=== PATIENT | male | born 1935 | race Caucasian/White ===

== ENCOUNTER 2017-07-22 06:13 | Inpatient (IN) ==
[~2017-07-22 06:13] MED LIST: ACETAMINOPHEN 500 MG TABLET PO ONE; DEXAMETHASONE 4 MG/ML INJECTION IVP ONE; FAMOTIDINE PB 20 MG/50 ML BAG IV ONE; MELOXICAM 15 MG TABLET PO ONE; METOCLOPRAMIDE 10mg/2ml INJECTION IVP ONE; NOZIN NASAL SWAB NAS ONE; ONDANSETRON 4 MG/2 ML INJECTION IVP ONE; TRANEXAMIC ACID 1,000 MG in NS 100 ML IV ONE
[2017-07-22 06:35] VITALS: BMI 25.9
[2017-07-22] MEDS ORDERED: LIDOCAINE 1% (10mg/ml) 2mL INJ PF SDV ID ONE (06:46)
[2017-07-22] MEDS ORDERED: TRANEXAMIC ACID 1,000 MG in NS 100 ML IV ONE (07:00)
[2017-07-22] MEDS: LR 1,000 ML IV SCH ×2 (07:14→08:50)
[2017-07-22] MEDS ORDERED: VANCOMYCIN 1,000 MG INJECTION ONE (07:17)
[2017-07-22] MEDS ORDERED: EPINEPHrine 0.25 MG, BUPIVACAINE 0.25% PF 30 ML, MORPHINE SULFATE 15 MG, KETOROLAC INJ ... OPSITE ONE (08:00)
[2017-07-22] MEDS ORDERED: MIDAZOLAM 2mg/2ml INJECTION ONE (08:10)
[2017-07-22] MEDS ORDERED: PROPOFOL 1,000 MG/100 ML VIAL IV ONE (08:14)
[2017-07-22] MEDS ORDERED: CEFAZOLIN 1 G INJECTION IVP ONE (08:30)
[2017-07-22] MEDS ORDERED: EPHEDRINE 50mg/ml INJECTION ONE (09:08)
[2017-07-22] MEDS ORDERED: VANCOMYCIN 1,000 MG INJECTION IAR ONE (09:14)
--- NOTE | 2017-07-22 09:43 | Anesthesia Preoperative Report ---
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 Proposed Procedure: left TKA robot assist NPO Since Date: 07/21/17 NPO Since Time: 23:00 Allergies/Adverse Reactions: Allergies Allergy/AdvReac Type Severity Reaction Status Date / Time Iodinated Contrast- Oral and Allergy Unknown itching Verified 07/22/17 06:58 IV Dye and hives Sulfa (Sulfonamide Allergy Unknown SWOLLEN Verified 07/22/17 06:58 Antibiotics) HANDS Shellfish Allergy Unknown tongue Uncoded 07/22/17 06:58 swells - Vital Signs Vital Signs: Temperature 97.5 F 07/22/17 06:35 Pulse Rate 55 L 07/22/17 07:05 Respiratory Rate 17 07/22/17 06:35 Blood Pressure 156/72 H 07/22/17 06:35 Pulse Oximetry 97 07/22/17 06:35 Height and Weight: Height 6 ft Weight 86.7 kg Body Mass Index 25.9 - Medications Inpatient Medications: Current Medications Lactated Ringer's (Lactated Ringers) 1,000 mls @ 50 mls/hr IV .Q20H CACHORRO Last Admin: 07/22/17 08:50 Dose: 50 mls/hr Epinephrine HCl 0.25 mg/Bupivacaine HCl 30 ml/Morphine Sulfate 15 mg/Ketorolac Tromethamine 60 mg/Sodium Chloride 65.25 mls @ 1 mls/hr OPSITE INTRAOP ONE PRN Reason: Protocol Stop: 07/25/17 01:14 Sodium Chloride (Iv Flush) 10 - 80 ml IV PRN PRN PRN Reason: Flushing Vancomycin HCl (Vancocin) 1,000 mg IAR O ONE Stop: 07/22/17 09:15 Home Medications: Home Medications Medication Instructions Recorded Confirmed Type Amlodipine Besylate 10 mg PO DAILY #0 05/14/14 07/22/17 History Zinc Gluconate [Zinc] 50 mg PO DAILY #0 05/14/14 07/22/17 History Bisacodyl [Dulcolax] 10 mg PO DAILY #0 04/24/15 07/22/17 History Cholecalciferol [Vit. D-3] 1,000 unit PO DAILY #0 04/24/15 07/22/17 History Pravastatin Sodium 80 mg PO DAILY #0 04/24/15 07/22/17 History Vitamin E Mixed [Vitamin E] 400 unit PO DAILY #0 04/24/15 07/21/17 History L.acidoph,Paracasei, B.lactis 1 cap PO DAILY #0 12/13/15 07/22/17 History [Probiotic] Wheat Dextrin [Benefiber] 2 tsp PO DAILY #0 12/13/15 07/22/17 History Ibuprofen 800 mg PO Q8H PRN #0 03/06/16 07/02/17 History Aspirin *EC* [Ecotrin] 1 tab PO DAILY 07/02/17 07/21/17 History TESTOSTERONE 100MG/ML (10 mL) 100 mg IM 1 WEEK 07/02/17 07/22/17 History [Depo-Testosterone] - Medical History Respiratory: Reports: Sleep Apnea (CPAP) DENIES: Asthma, Chronic Obstructive Pulmonary Disease (COPD) (smoking hx, but denies COPD) Cardiovascular: Reports: Hypertension Gastrointestional: DENIES: Gastroesophageal Reflux Disease Renal/Endocrine: DENIES: Diabetes Mellitus Type 2 Other History: DENIES: Anesthesia Reactions - Surgical History HEENT Surgeries: Reports: Eye Surgery (cat ext with IOL implant-bilateral) Respiratory Surgery/Treatments: Reports: CPAP Use GI Surgery/Treatments: Reports: Colonoscopy, Other (umbilical hernia repair; rectal abscess) Musculoskeletal Surgery/Tx: Reports: Joint Surgery (Bilateral TSA, Lt shoulder x2) Anesthesia Reactions: None Hx Family Anesthesia Reaction: No History of Motion Sickness: No - Social History Smoking Status: Former smoker Hx Chewing Tobacco Use: No Second Hand Exposure: No Substance Use Type: does not use - Pertinent Findings EKG: Sinus Bradycardia - Physical Exam Respiratory Exam: Present: lungs clear, bilateral breath sounds equal Cardiovascular Exam: Present: regular rate and rhythm - Airway Assessment Mallampati Score: II TMD: 3 Fingerbreadths Neck Extension: good Overall Assessment: no airway concerns - ASA ASA Score: 2 - Plan Anesthesia: General TIVA, Neuroaxial Regional/Trunk Block: Spinal - Discussion Discussion: Discussed risks/options/alternatives of anesthesia and questions answered. Patient consents. Nursing pain assessment noted. Present for Discussion: family member Attestation Statement: Prior to the delivery of any anesthetic medication, I examined the patient, developed the plan, obtained the patient's consent and discussed the risk and benefits of the procedure with the patient/guardian. - Additional Information Seen by Anesthesia: Yes
--- NOTE | 2017-07-22 10:08 | Operative Note ---
- Procedure Preoperative Diagnosis: Left knee primary degenerative joint disease Postoperative Diagnosis: Same as preoperative diagnosis. Surgeon: Teresa Fung MD Supervisor Fishing: Benji Campos Complications: None. Anesthesia: Spinal. Estimated Blood Loss: See Anesthesia Record. Fluids: Please see Anesthesia Record. Description of Procedure: Mr. Cobb and his left knee were identified and marked in the preoperative holding area. He was brought back to the operating suite after a saphenous nerve block was placed in the preoperative holding area. Spinal anesthetic was administered and he was placed supine on the operating table. The left lower extremity was prepped and draped in my normal sterile fashion. Timeout was performed. The [email or web address] robot was used during the surgery. He has fixed varus deformity. A standard anterior midline incision followed by medial parapatellar arthrotomy was performed. Anterior fat pad and meniscus were removed. He complete loss of cartilage in the medial compartment. The patella was resurfaced to a size 35. The tibial array was placed in the most inferior aspect of the incision medial to the tubercle using 3.2 pins. A femoral array again using bicortical pins was placed in the distal femoral metaphysis medially. Checkpoints were then placed both in the femur and the tibia. The bone was then registered with the [email or web address] robot. Osteophytes were removed and gaps were captured both 90 and 0 with correction. And the knee was balanced using the [email or web address] software placing the tibia and slight varus and externally rotating the femoral component. The [email or web address] robotic arm was then used to assist with the bone cuts. Posterior osteophytes and remaining meniscus were removed. Trial components were placed. We used a 5 femur and a 6 tibia with a 9 mm spacer. He tracked well and was well balanced throughout range of motion. The leg was exsanguinated and the tourniquet inflated to 250 mmHg. The bone was prepared for cementing and components were cemented into place and allowed to cure in extension. The tourniquet was let down and hemostasis obtained with electrocautery. The knee was ranged one more time to ensure good stability, balance and patellar tracking. 1 g of vancomycin powder was then placed into the knee joint. The capsulotomy was then closed with #1 Vicryl. I then left my materials assistant to close the subcutaneous tissue with 2-0 Vicryl. Running 4-0 Monocryl will be used in the subcuticular layer. Dermabond will be used on the skin followed by sterile dressing. After drapes are removed patient will be taken to recovery room under the care of anesthesia.
--- NOTE | 2017-07-22 10:25 | History & Physical Update ---
- History and Physical Update Date: 07/22/17 Update: I evaluated this patient and found no changes in the history and clinical exam findings. The treatment plan and recommendations are also unchanged from the previous documentation.
--- NOTE | 2017-07-22 10:59 | XRay Report ---
Indication: postoperative image PROCEDURE: XR knee LT 2V: Encounter: Initial Comparison: None Findings: Postoperative changes of left total knee replacement are seen. There is expected postoperative subcutaneous gas. No evidence of hardware failure or acute fracture. No retained radiopaque surgical instruments or sponges. Overlying material causing artifact. Impression: New left total knee prosthesis without evidence of immediate complication. .
[2017-07-22] MEDS ORDERED: ROPIVACAINE 0.5% (5mg/ml) 30ml INJ ONE (11:17)
--- NOTE | 2017-07-22 11:29 | Anesthesia Procedure Note ---
Peripheral Nerve Blockade - Procedure Physician: Neftaly Fung MD Date: 07/22/17 Surgical Procedure: left TKA, robot Discussion: Discussed risks/options/alternatives of anesthesia and questions answered. Patient consents. Nursing pain assessment noted. Block Start: 11:16 Block Stop: 11:22 Blocked Employed: Adductor Canal Indication: Post-Operative Pain Approach: Left Side Confirmed Position: Semi-Landin Patient: Consent, Risks/Benefits Discussed, Informed, Post Block Act. Discussed IV Sedation: No (spinal still in effect, block at L2) Initial Vital Signs: Temperature 97.5 F 07/22/17 06:35 Temperature Source Oral 07/22/17 06:35 Pulse Rate 59 L 07/22/17 06:35 Respiratory Rate 17 07/22/17 06:35 Blood Pressure 156/72 H 07/22/17 06:35 Blood Pressure Mean 100 07/22/17 06:35 Blood Pressure Position Sitting 07/22/17 06:35 Pulse Oximetry 97 07/22/17 06:35 Oxygen Delivery Method 07/22/17 06:35 Post Vital Signs: Temperature 97.0 F 07/22/17 11:05 Pulse Rate 51 L 07/22/17 11:20 Respiratory Rate 15 07/22/17 11:20 Blood Pressure 143/64 H 07/22/17 11:20 Pulse Oximetry 92 07/22/17 11:20 Initial Pain Pain Score: 0 Post Block Pain Score: 0 Prep: Chlorhexadine/ETOH Ultrasound Used?: Yes - Injectate Ropivacaine (%): 0.5 Ropivacaine (mL): 30 Was Epi 1:200,000 Used?: No Injection: Injection made incrementally with constant monitoring and aspiration every 5 ml
--- NOTE | 2017-07-22 11:29 | Anesthesia Postoperative Note ---
- Date and Time Date: 07/22/17 Time: 11:29 - Status Patient Participated in Evaluation: Patient Participated in Person Vital Signs: Temperature 97.0 F 07/22/17 11:05 Pulse Rate 52 L 07/22/17 11:25 Respiratory Rate 16 07/22/17 11:25 Blood Pressure 138/65 07/22/17 11:25 Pulse Oximetry 93 07/22/17 11:25 Respiratory Function: Airway Patent Cardiovascular Function: Regular Pulse EKG: Sinus Rhythm Mental Status: Alert and Oriented Pain Intensity: 0 Hydration: IV Infusing Complications During Recover: None Apparent Post Anesthesia Care Notes: block at L2- denies pain, nausea - Follow-Up Instructions Instructions: Per Surgeon
[2017-07-22] MEDS ORDERED: ONDANSETRON 4 MG/2 ML INJECTION IVP PRN (11:38)
[2017-07-22] MEDS ORDERED: DiphenhydrAMINE 25 MG CAPSULE PO PRN (11:38)
[2017-07-22] MEDS ORDERED: NOZIN NASAL SWAB NAS ONE (11:38)
[2017-07-22] MEDS ORDERED: DiphenhydrAMINE 50 MG/ML INJECTION IVP PRN (11:38)
[2017-07-22] MEDS ORDERED: LORazepam 1 MG TABLET PO PRN (11:38)
[2017-07-22] MEDS ORDERED: NAPROXEN 220 MG TABLET PO PRN (11:38)
[2017-07-22] MEDS: NS 1,000 ML IV SCH (11:40)
[2017-07-22] MEDS: Oxycodone *IR* 5 MG TABLET PO PRN ×3 (12:49→20:59)
[2017-07-22] MEDS: ACETAMINOPHEN 325 MG TABLET PO SCH ×3 (12:50→20:58)
[2017-07-22] MEDS: NOZIN NASAL SWAB NAS SCH ×2 (16:15→21:00)
[2017-07-22] MEDS: CEFAZOLIN 2 G in NS 100 ML IV SCH (16:16)
[2017-07-22] MEDS ORDERED: SALINE FLUSH 10ml SYRINGE IV PRN (17:02)
[2017-07-22] MEDS: DOCUSATE SODIUM 100 MG CAPSULE PO SCH (20:57)
[2017-07-22] MEDS: ASPIRIN *EC* 81 MG TABLET PO SCH (20:59)
[2017-07-22] MEDS ORDERED: PRAVASTATIN 40 MG TABLET PO SCH (21:00)
[2017-07-22] MEDS ORDERED: SENNOSIDES 8.6 MG TABLET PO SCH (21:00)
[2017-07-23] MEDS: CEFAZOLIN 2 G in NS 100 ML IV SCH (00:03)
[2017-07-23] MEDS: NS 1,000 ML IV SCH (01:23)
[2017-07-23] MEDS: NOZIN NASAL SWAB NAS SCH ×2 (05:57→13:29)
--- NOTE | 2017-07-23 07:52 | Orthopedic Progress Note ---
Date: Subjective/Severity of Illness: Damian is doing very well. Pain is controlled. No CP or SOA. He has a slight cough which he states is not unusual for him. He has been up with good tolerance. Orthopedic Objective PO Vital signs: Temperature 97.7 F 07/23/17 03:56 Pulse Rate 61 07/23/17 03:56 Respiratory Rate 16 07/23/17 03:56 Blood Pressure 145/67 H 07/23/17 03:56 Pulse Oximetry 94 07/23/17 03:56 Height and Weight: Height 6 ft Weight 191 lb 2.252 oz Body Mass Index 25.9 - Constitutional General Appearance: Present: alert, no acute distress - Respiratory Exam Present: non-labored - Extremities Exam Extremities: Present: pulses intact, normal capillary refill. Absent: calf tenderness - Surgical Site Incision: Mepilex dressing intact, no drainage - Integumentary Exam Present: pink, warm, dry - Neurological Exam Present: no deficits - Psychiatric Exam Present: alert, normal affect - Labs Result Diagrams: 07/23/17 04:00 07/23/17 04:00 Abnormal lab results 07/23/17 07/23/17 Range/Units 04:00 04:00 WBC 12.7 H (4.5-11.0) T/MM3 RBC 4.29 L (4.50-5.90) M/MM3 Hgb 13.1 L (13.5-17.5) GM/DL Chloride 109 H (98-107) MEQ/L BUN 28.0 H (9-20) MG/DL BUN/Creatinine Ratio 28 H (6-26) RATIO Glucose 117 H (75-110) MG/DL H & H 07/23/17 Range/Units 04:00 Hgb 13.1 L (13.5-17.5) GM/DL Hct 41.0 (41-53) % Orthopedic Assessment and Plan (1) Primary osteoarthritis of left knee Status: Acute Assessment and Plan: Current anti-coagulation protocol for VTE prophylaxis. SCD's. BPs have been a little high but similar to his admission pressure. Will resume Norvasc this AM. PT/OT services to improve independent function. Discharge Planning per Case Management. - Anticoagulation Therapy Anticoagulation: ASA 325 mg PO BID x6 weeks, other (ASA 81mg BID x 6 weeks.) Hospital Course Summary Disclaimer: The visit summary below is not to be considered part of the above Progress Note.
[2017-07-23] MEDS: ASPIRIN *EC* 81 MG TABLET PO SCH (08:27)
[2017-07-23] MEDS: ACETAMINOPHEN 325 MG TABLET PO SCH ×2 (08:27→13:28)
[2017-07-23] MEDS: DOCUSATE SODIUM 100 MG CAPSULE PO SCH (08:28)
[2017-07-23] MEDS ORDERED: CEFAZOLIN 1 G INJECTION IVP ONE (08:30)
[2017-07-23] MEDS ORDERED: AMLODIPINE 10 MG TABLET PO SCH (09:00)
[2017-07-23] MEDS ORDERED: Bisacodyl EC TAB 5 MG TABLET PO SCH (09:00)
[2017-07-23] MEDS ORDERED: POLYETHYL GLYCOL 3350 17gm PACKET PO SCH (09:00)
[2017-07-23] MEDS: Oxycodone *IR* 5 MG TABLET PO PRN (10:09)
[2017-07-23] MEDS ORDERED: SENNOSIDES 8.6 MG TABLET PO PRN (10:27)
[2017-07-23 12:20] VITALS: BP 150/78; PULSE 72; RESP 18; TEMP 97.5; O2SAT 95
--- NOTE | 2017-07-23 13:13 | Discharge Summary ---
Orthopedic Discharge Info Date of admission: 07/22/17 06:13 Primary care physician: Guido Lewis DO Attending Physician: Neftaly Fung MD Consults: 07/22/17 06:46 Consult to Anesthesiology [CONS] Routine Consulting Provider: PANKAJ Morel Reason For Exam: Preoperative Assessment 07/22/17 11:38 Case Management Consult [CONS] Routine Reason For Exam: Discharge Planning DME-Walker [CONS] Routine Height: 6 ft Weight: 191 lb 2.252 oz Comment: change dressing in 2 weeks Total Joint Outpatient Therapy [CONS] Routine Comment: change dressing in 2 weeks - Discharge Diagnosis (1) Primary osteoarthritis of left knee Status: Acute - Procedures Procedures: Left knee TKA - Laboratory Result Diagrams: 07/23/17 04:00 07/23/17 04:00 Laboratory: Abnormal lab results 07/23/17 07/23/17 Range/Units 04:00 04:00 WBC 12.7 H (4.5-11.0) T/MM3 RBC 4.29 L (4.50-5.90) M/MM3 Hgb 13.1 L (13.5-17.5) GM/DL Chloride 109 H (98-107) MEQ/L BUN 28.0 H (9-20) MG/DL BUN/Creatinine Ratio 28 H (6-26) RATIO Glucose 117 H (75-110) MG/DL H & H 07/23/17 Range/Units 04:00 Hgb 13.1 L (13.5-17.5) GM/DL Hct 41.0 (41-53) % Orthopedic Discharge HPI - HPI Comments This patient was admitted for elective surgical tx of end stage degenerative joint disease that failed to respond to conservative treatment. Further details of this is found in the admission H&P. Orthopedic Hospital Course Hospital course: 07/23/17 13:10 After appropriate preoperative clearance and signing of operative consent, the patient was given IV antibiotics, according to orthopedic protocol. The patient was taken to the operating room and underwent elective joint arthroplasty. Following surgery, antibiotics were discontinued less than 24 hours according to joint protocol. Appropriate anticoagulants were initiated and SCDs added for DVT prevention. The dressing was clean, dry, and intact. Pain control was obtained via multimodal approach. Bowel motivation addressed with scheduled and PRN medications. Early mobilization was initiated through PT services. Discharge arrangements made by a collaborative effort between the patient and Case Management. Follow-up is scheduled in 2-3 weeks. Discharge instructions given by orthopedic providers and nursing staff at discharge. Discharge condition was good. Ongoing care required?: No - Postoperative Anemia patient received IVF, labs monitored daily, no intervention required, HGB drop- acceptable - Leukocytosis due to surgical stress response Discharge Plan - Med Rec/Dispo Referrals/Follow Up: Neftaly Fung MD [Physician] - 08/11/17 3:15 pm Additional Instructions: Physical Therapy scheduled for Friday07/25/17 at 5:30pm at [facility]. [phone], [address] [place], [place] Prescriptions: New Acetaminophen [Tylenol] 650 mg PO QID #100 tab Aspirin *EC* [Ecotrin] 81 mg PO BID #84 tab Naproxen [Aleve] 440 mg PO BID PRN #84 tab PRN Reason: Pain Oxycodone *IR* [Roxicodone *Ir*] 5 - 15 mg PO Q3H PRN #60 tab PRN Reason: Breakthrough Pain Continue Zinc Gluconate [Zinc] 50 mg PO DAILY #0 Cholecalciferol [Vit. D-3] 1,000 unit PO DAILY #0 TESTOSTERONE 100MG/ML (10 mL) [Depo-Testosterone] 100 mg IM 1 WEEK Amlodipine Besylate 10 mg PO DAILY #0 Bisacodyl [Dulcolax] 10 mg PO DAILY #0 Pravastatin Sodium 80 mg PO DAILY #0 Vitamin E Mixed [Vitamin E] 400 unit PO DAILY #0 L.acidoph,Paracasei, B.lactis [Probiotic] 1 cap PO DAILY #0 Wheat Dextrin [Benefiber] 2 tsp PO DAILY #0 Discontinued Aspirin *EC* [Ecotrin] 1 tab PO DAILY Ibuprofen 800 mg PO Q8H PRN #0 PRN Reason: PAIN - Disposition 01 Discharged Home, Self-Care
[2017-07-24] MEDS ORDERED: BISACODYL 10 MG SUPPOSITORY RECTALLY SCH (20:00)
== END 2017-07-23 14:05 | disposition home or self-care (01) | DRG 470 ==
LOC: SRG 06:13
PROVIDERS: ADMIT Orthopaedic Surgery; ATTEND Orthopaedic Surgery

== ENCOUNTER 2017-11-25 14:10 | Observation (INO) ==
--- NOTE | 2017-11-25 14:29 | Emergency Department Report ---
General Adult HPI - General Stated complaint: left arm numbness Time Seen by Provider: 11/25/17 14:27 Source: patient Mode of arrival: ambulatory Limitations: no limitations - History of Present Illness HPI narrative: 82-year-old male presents to the emergency department with the chief complaint of weakness in his left upper extremity mainly the hand. Patient was driving to [place] at approximately 1345 when he noted onset of symptoms. He denies any pain or discomfort. Patient notes that the weakness has improved markedly in his left upper extremity upon arrival to the emergency department. He has no other complaints or associated symptoms. Patient does take 81 mg of aspirin on a daily basis and did take this today. He has no history of prior similar symptoms. He was in his car when the symptoms began. Symptoms have been persistent in nature since onset with improvement as noted above. - Related Data Home Medications Medication Instructions Recorded Confirmed Cholecalciferol [Vit. D-3] 1,000 unit PO DAILY #0 04/24/15 11/25/17 Pravastatin Sodium 80 mg PO DAILY #0 04/24/15 11/25/17 Vitamin E Mixed [Vitamin E] 400 unit PO DAILY #0 04/24/15 11/25/17 Wheat Dextrin [Benefiber] 2 tsp PO DAILY #0 12/13/15 11/25/17 Depo-Testosterone (testosterone See Label Instructions IM .COMPLEX 07/30/1704/06 cypionate) 100 mg/mL intramuscular ml oil Amlodipine [Norvasc] 10 mg PO DAILY 11/25/17 11/25/17 Bisacodyl EC TAB [Dulcolax] 10 mg PO DAILY 11/25/17 11/25/17 Lactobacillus Acidophilus 1 each PO DAILY 11/25/17 11/25/17 [Probiotic] Zinc 50 mg PO DAILY 11/25/17 11/25/17 Previous Rx's Medication Instructions Recorded Aspirin *EC* [Ecotrin] 81 mg PO BID #84 tab 07/23/17 Allergies Allergy/AdvReac Type Severity Reaction Status Date / Time Iodinated Contrast- Oral and Allergy Unknown itching Verified 11/25/17 15:44 IV Dye and hives Sulfa (Sulfonamide Allergy Unknown SWOLLEN Verified 11/25/17 15:44 Antibiotics) HANDS Shellfish Allergy Unknown tongue Uncoded 11/25/17 17:35 swells Review of Systems Constitutional: Denies: fever, chills Eyes: Denies: eye pain, vision change ENT: Denies: ear pain, throat pain Cardiovascular: Denies: chest pain, palpitations Respiratory: Denies: cough, dyspnea Gastrointestinal: Denies: abdominal pain, nausea, vomiting, diarrhea Genitourinary: Denies: urgency, dysuria Musculoskeletal: Denies: back pain, arthralgia Integumentary: Denies: erythema, rash Neurological: Reports: weakness. Denies: headache, numbness Psychiatric: Denies: anxiety, depression Endocrine: Denies: fatigue, heat or cold intolerance Hematological/Lymphatic: Denies: easy bruising, lymphadenopathy Allergic/Immunologic: Denies: facial swelling, urticaria PFSH Patient Stated Medical History Hearing Loss Yes Asthma No Chronic Obstructive Pulmonary No: smoking hx, but denies COPD Disease (COPD) Sleep Apnea Yes: CPAP Diabetes Mellitus Type 2 No Gastroesophageal Reflux No Disease Anesthesia Reactions No Clinic Medical History (Last Reviewed 09/01/17 @ 14:30 by DAVIDE Vanegas) Hypogonadism, male (Chronic Medical) Unclear whether primary or secondary etiology, but has been present for many years, making pituitary tumor fairly unlikely. Should check efficacy of injections. Hyperlipidemia LDL goal <130 (Chronic Medical) on statin Hypertension (Chronic Medical) High BP today BPH (benign prostatic hyperplasia) (Chronic Medical) With history of prostate cancer in family must monitor closely while on testosterone therapy. Surgical History: Tonsillectomy; Bilateral shoulder replaced; Left knee; Bilateral cataract; Umbilical hernia repair; Rectal abscess. Lt TKA 10-3-17 Family History: Family History (Last Reviewed 09/01/17 @ 14:30 by DAVIDE Vanegas) Father Stroke Mother Breast cancer Dementia Maternal Grandfather Prostate cancer Paternal Grandmother Cancer Maternal Grandmother Heart attack - Social History Smoking status: Former smoker Substance use type: does not use Alcohol intake frequency: does not drink Physical Exam - Limitations Limitations: no limitations - General General appearance: alert, in no apparent distress - Normal Exams: Head:: Normocephalic without trauma Eyes:: Pupils are PERRLA w/ EOMI, No scleral icterus, irritation, or foreign bodies noted ENMT:: No facial trauma, nasal exudates, pharyngeal erythema, or exudates are noted Dental: No fractured, loose, or missing teeth noted Neck:: Full range of motion, without adenopathy, JVD, bruits or thyromegaly Chest/Respirations:: Clear all hensley, with good airflow, and symmetry bilaterally Cardiovascular:: Regular rate and rhythm, without murmur or gallop, Pulses 2+ all extremities, capillary refill, <2 seconds all extremities Abdomen:: Bowel sounds positive, soft, non-tender, non-distended, no hepatosplenomegaly, masses or bruits noted Lymphatic:: No lymphadenopathy, or lymphedema noted Musculoskeletal:: No tenderness, or deformity noted, good range of motion, all extremities Integumentary:: No rashes, hives, or bruising noted, hair and nails, without abnormality Neurological:: Patient is alert (Alert and oriented x 3. CN 2-12 intact. Normal motor. Normal coordination. Normal gait. Normal speech. Normal sensation. Normal drink except for slight weakness noted to the left hand. Reflexes 2/4 in all extremities. Absent Babinski bilaterally. Normal neurologic exam except as noted.), and oriented, cranial nerves, motor/sensory/ cerebellar, exams w/o gross deficits, to observation Psychiatric:: Patient exhibits, appropriate attention, emotion and affect Course Vital Signs Temperature 97.9 F 11/25/17 14:10 Temperature 97.1 F 11/26/17 00:19 Pulse Rate 49 L 11/26/17 00:19 Respiratory Rate 16 11/26/17 00:19 Blood Pressure 148/69 H 11/26/17 00:19 Pulse Oximetry 97 11/26/17 00:19 Medical Decision Making - [facility] Narrative Medical decision making narrative: Labs / imaging were discussed in detail with the patient and family and questions are answered. Patient was discussed with tele-neurology Dr. Guido who recommends no TPA at this time and to admit to the patient to the hospital for stroke evaluation. Patient is given 243 mg of aspirin to complete his Aspirin to full dose. Patient is not a TPA candidate due to low NIH. Patient and family are in agreement with the current plan of management. Patient is admitted to the hospital in improved condition. Patient is admitted to the service of Dr. Rojas after discussion with him. No further orders as accepting physician is in agreement with the current plan of management. - Differential Diagnosis TIA, CVA, Metabolic disorder, UTI - Lab Data Result diagrams: 11/26/17 04:31 11/26/17 04:31 Lab Results 11/25/17 11/25/17 11/25/17 Range/Units 14:49 14:49 14:49 WBC 7.5 (4.5-11.0) T/MM3 RBC 5.04 (4.50-5.90) M/MM3 Hgb 14.6 (13.5-17.5) GM/DL Hct 45.9 (41-53) % MCV 91.1 (80-100) UM3 MCH 29.0 (26-34) UUG MCHC 31.8 (31-37) GM/DL RDW Std Deviation 49.7 (36.9-50.2) FL Plt Count 118 L (130-400) T/MM3 MPV 11.1 (9.4-12.4) UM3 Immature Gran % (Auto) 0.4 (0.0-0.5) % Neut % (Auto) 67.0 H (33-66) % Lymph % (Auto) 20.3 L (23-45) % Gordon % (Auto) 7.2 (0-9.0) % Eos % (Auto) 4.0 (0-4) % Baso % (Auto) 1.1 (0-2) % Neut # (Auto) 5.1 (1.8-7.7) T/MM3 Lymph # (Auto) 1.5 (1-4.8) T/MM3 Gordon # (Auto) 0.5 (0-0.8) T/MM3 Eos # (Auto) 0.3 (0-0.5) T/MM3 Baso # (Auto) 0.1 (0-0.2) T/MM3 Abs Immat Gran (auto) 0.03 (0.00-0.03) T/MM3 INR 0.94 L (0.99-1.21) APTT 16.6 L (24-36) SEC Turbidity < 20 (0-20) Sodium 141 (134-144) MEQ/L Potassium 4.8 (3.6-5) MEQ/L Chloride 104 (98-107) MEQ/L Carbon Dioxide 24 (22-30) MEQ/L Anion Gap 13 (5-15) MEQ/L BUN 24.0 H (9-20) MG/DL Creatinine 0.9 (0.8-1.5) MG/DL GFR Calculation 81 BUN/Creatinine Ratio 27 H (6-26) RATIO Glucose 116 H (75-110) MG/DL Calculated Osmolality 276 (261-280) MOSM/KG Calcium 10.4 H (8.4-10.2) MG/DL Total Bilirubin 1.10 (0.20-1.30) MG/DL Icterus Index < 2 (0-7) AST 47 (17-59) U/L ALT 14 L (21-72) U/L Alkaline Phosphatase 74 (38-126) U/L Troponin I < 0.012 (0-0.12) ng/ml Total Protein 8.0 (6.3-8.2) G/DL Albumin 4.8 (3.5-5.0) G/DL Globulin 3.2 (2.4-3.6) G/DL Albumin/Globulin Ratio 1.5 (1.1-2.2) RATIO Specimen Hemolysis 99 H (0-25) Ur Collection Type Urine Color (YELLOW) Urine Clarity Urine pH (5.0-8.0) Ur Specific [place] (1.015-1.025) Urine Protein (NEGATIVE) Urine Glucose (UA) (NEGATIVE) Urine Ketones (NEGATIVE) Urine Occult Blood (NEGATIVE) Urine Nitrate (NEGATIVE) Urine Bilirubin (NEGATIVE) Urine Urobilinogen (NORMAL) EU/DL Ur Leukocyte Esterase (NEGATIVE) Urinalysis Comment 11/25/17 Range/Units 15:39 WBC (4.5-11.0) T/MM3 RBC (4.50-5.90) M/MM3 Hgb (13.5-17.5) GM/DL Hct (41-53) % MCV (80-100) UM3 MCH (26-34) UUG MCHC (31-37) GM/DL RDW Std Deviation (36.9-50.2) FL Plt Count (130-400) T/MM3 MPV (9.4-12.4) UM3 Immature Gran % (Auto) (0.0-0.5) % Neut % (Auto) (33-66) % Lymph % (Auto) (23-45) % Gordon % (Auto) (0-9.0) % Eos % (Auto) (0-4) % Baso % (Auto) (0-2) % Neut # (Auto) (1.8-7.7) T/MM3 Lymph # (Auto) (1-4.8) T/MM3 Gordon # (Auto) (0-0.8) T/MM3 Eos # (Auto) (0-0.5) T/MM3 Baso # (Auto) (0-0.2) T/MM3 Abs Immat Gran (auto) (0.00-0.03) T/MM3 INR (0.99-1.21) APTT (24-36) SEC Turbidity (0-20) Sodium (134-144) MEQ/L Potassium (3.6-5) MEQ/L Chloride (98-107) MEQ/L Carbon Dioxide (22-30) MEQ/L Anion Gap (5-15) MEQ/L BUN (9-20) MG/DL Creatinine (0.8-1.5) MG/DL GFR Calculation BUN/Creatinine Ratio (6-26) RATIO Glucose (75-110) MG/DL Calculated Osmolality (261-280) MOSM/KG Calcium (8.4-10.2) MG/DL Total Bilirubin (0.20-1.30) MG/DL Icterus Index (0-7) AST (17-59) U/L ALT (21-72) U/L Alkaline Phosphatase (38-126) U/L Troponin I (0-0.12) ng/ml Total Protein (6.3-8.2) G/DL Albumin (3.5-5.0) G/DL Globulin (2.4-3.6) G/DL Albumin/Globulin Ratio (1.1-2.2) RATIO Specimen Hemolysis (0-25) Ur Collection Type Urine, void-cc/notcc Urine Color Yellow (YELLOW) Urine Clarity Clear Urine pH 7.0 (5.0-8.0) Ur Specific [place] 1.010 L (1.015-1.025) Urine Protein Negative (NEGATIVE) Urine Glucose (UA) Negative (NEGATIVE) Urine Ketones Negative (NEGATIVE) Urine Occult Blood Negative (NEGATIVE) Urine Nitrate Negative (NEGATIVE) Urine Bilirubin Negative (NEGATIVE) Urine Urobilinogen 0.2 (NORMAL) EU/DL Ur Leukocyte Esterase Negative (NEGATIVE) Urinalysis Comment Microscopic not ind. - Radiology Data CT head: IMPRESSION: No acute intracranial hemorrhage. Age-indeterminate ischemic change in the right temporal lobe. Further evaluation with MRI may be helpful given the patient's symptoms. CXR: No acute processes. - EKG Data EKG #1 EKG results narrative: Sinus rhythm. 76 bpm. No STEMI. Disposition Clinical Impression: Left arm weakness Disposition: 02 To [facility] Condition: Improved Time of Disposition: 16:00 (Admit. Dr. Rojas. ) - Seen By: physician
--- NOTE | 2017-11-25 14:48 | CT Scan Report ---
Indication: LUE Weakness PROCEDURE: CT head/brain wo con: Encounter: Initial Comparison: None Technique: Axial CT images through the head were performed without contrast. Iterative Reconstruction dose reducing technique was utilized. FINDINGS: The ventricles are of normal size, shape, and contour for the patient's age. Focal low-attenuation is noted in the right temporal lobe best seen on axial image #17 measuring 1.3 cm in diameter. This is of indeterminate age without available comparison. The brainstem, cerebellum, and cerebral hemispheres otherwise have a normal morphology and CT attenuation. There is no evidence of midline displacement. No hemorrhage, signs of acute territorial stroke, mass effect, mass lesions, or edema is evident. The visualized portions of the skull base, midface, and calvarium demonstrate no abnormality. The paranasal sinuses are well aerated and free of significant disease. The tympanic and mastoid cavities appear normal. IMPRESSION: No acute intracranial hemorrhage. Age-indeterminate ischemic change in the right temporal lobe. Further evaluation with MRI may be helpful given the patient's symptoms. Findings were called to the emergency room physician at 1442 on November 25, 2017, six minutes after the conclusion of the exam. .
--- NOTE | 2017-11-25 16:00 | XRay Report ---
Indication: lue weakness PROCEDURE: XR chest 1V: Encounter: Initial Comparison: June 25, 2017 Findings: The lungs are stable in appearance without new focal airspace consolidation. There is no pleural effusion or pneumothorax. The heart size, pulmonary vascularity and mediastinal contours are unchanged. IMPRESSION: Stable appearance of the chest without acute cardiopulmonary disease. .
[2017-11-25] MEDS ORDERED: ASPIRIN 81 MG CHEWABLE TABLET PO ONE (16:21)
[2017-11-25 17:19] VITALS: BMI 26.2
--- NOTE | 2017-11-25 17:19 | History & Physical Report ---
History of Present Illness Date: 11/25/17 Chief complaint: Left hand/arm weakness HPI: 82 y/o male with HTN and HDL presents to [facility] ED secondary to acute onset of left hand and upper ext weakness. Symptoms onset suddenly while he was driving from home to [employer]. Noticed his left arm very weak and rubbery, not able to control left hand or arm. No numbness. Enroute from [facility] to [place], majority of weakness resolved. Currently only had weakness to 4th and 5th fingers. Does note incoordination to left hand-not as weak as was initially, but not moving completely normally. No similar symptoms in his left leg or right side. Denies CENTENO, visual or hearing changes. No chest pressure, pain or palpitations. Denies recent illness. No f/c. Not feeling SOA or congested. No ab pain, nausea or vomiting. Stools stable. Denies urinary pain or burning. Does take ASA 81mg daily. Adherent with medications, but reports using pravastatin in the morning. Evaluated in ED. CT without acute bleed. Lab unremarkable. With improving symptoms, Teleneurology recommended against TPA. Place in OBS status for further evaluation and treatment. Review of Systems All systems PM: 10-point ROS was reviewed, no additional remarkable complaints except - Constitutional Constitutional: Absent: headache(s) - Cardiovascular Cardiovascular: Present: edema (Left leg since Knee Sx 4 months ago.) - Respiratory Respiratory: Present: cough (Mild, occasional dry cough) Respiratory Comments: Adherent with CPAP at night - Genitourinary Genitourinary: Present: nocturia (Stable x1 a night) - Neurological Neurological: Absent: abnormal speech, confusion, dizziness, memory loss, numbness, paresthesias, vertigo - Hematologic/Lymphatic Hematologic/Lymphatic Comments: Donated blood yesterday. Has not been feeling dizzy, weak, faint, or unsteady since. Past Medical History Clinic Medical History (Last Reviewed 09/01/17 @ 14:30 by DAVIDE Vanegas) Hypogonadism, male (Chronic Medical) Unclear whether primary or secondary etiology, but has been present for many years, making pituitary tumor fairly unlikely. Should check efficacy of injections. Hyperlipidemia LDL goal <130 (Chronic Medical) on statin Hypertension (Chronic Medical) High BP today BPH (benign prostatic hyperplasia) (Chronic Medical) With history of prostate cancer in family must monitor closely while on testosterone therapy. Medical History Updates: NANDO on CPAP Surgical History: Tonsillectomy; Bilateral shoulder replaced; Left knee; Bilateral cataract; Umbilical hernia repair; Rectal abscess. Lt TKA 07-22-17 Family History: Family History (Last Reviewed 09/01/17 @ 14:30 by DAVIDE Vanegas) Father Stroke Mother Breast cancer Dementia Maternal Grandfather Prostate cancer Paternal Grandmother Cancer Maternal Grandmother Heart attack Family History Updates: . 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 D-3] 1,000 unit PO DAILY #0 04/24/15 11/25/17 History Pravastatin Sodium 80 mg PO DAILY #0 04/24/15 11/25/17 History Vitamin E Mixed [Vitamin E] 400 unit PO DAILY #0 04/24/15 11/25/17 History Wheat Dextrin [Benefiber] 2 tsp PO DAILY #0 12/13/15 11/25/17 History Depo-Testosterone (testosterone See Label Instructions IM .COMPLEX 07/30/1704/06 History cypionate) 100 mg/mL intramuscular ml oil Amlodipine [Norvasc] 10 mg PO DAILY 11/25/17 11/25/17 History Bisacodyl EC TAB [Dulcolax] 10 mg PO DAILY 11/25/17 11/25/17 History Lactobacillus Acidophilus 1 each PO DAILY 11/25/17 11/25/17 History [Probiotic] Zinc 50 mg PO DAILY 11/25/17 11/25/17 History Allergies Allergy/AdvReac Type Severity Reaction Status Date / Time Iodinated Contrast- Oral and Allergy Unknown itching Verified 11/25/17 15:44 IV Dye and hives Sulfa (Sulfonamide Allergy Unknown SWOLLEN Verified 11/25/17 15:44 Antibiotics) HANDS Shellfish Allergy Unknown tongue Uncoded 09/01/17 14:30 swells Exam Vital Signs: Temperature 97.9 F 11/25/17 14:10 Pulse Rate 69 11/25/17 15:30 Respiratory Rate 28 H 11/25/17 15:30 Blood Pressure 169/76 H 11/25/17 15:30 Pulse Oximetry 95 11/25/17 15:30 - Constitutional Present: no acute distress, well nourished, well developed, average body habitus , cooperative. Absent: combative, agitated, somnolent, obtunded - Routine HEENT Exam Head: Present: normocephalic, atraumatic Eye: Present: EOMI, PERRL ENT: Present: mucous membranes moist - Routine Neck Exam Present: supple, full ROM, trachea midline - Routine Respiratory Exam Present: CTA bilaterally. Absent: respiratory distress, rhonchi, stridor, wheezes, crackles - Routine Cardiovascular Exam Present: RRR, no murmur - Routine Abdominal Exam Present: soft, normoactive bowel sounds, non distended, non tender - Routine Extremities Exam Present: edema (+2 Left lower edema ), pulses intact, normal capillary refill. Absent: cyanosis, clubbing - Routine Skin Exam Present: intact, dry, warm - Routine Neurological Exam Present: alert, oriented X3, CN II-XII intact, motor deficit (Weakness to 4th and 5th digits on left ), moving all extremities, vision grossly intact, hearing grossly intact, normal speech. Absent: altered mental status, nystagmus , hemineglect - Routine Psychiatric Exam Present: normal affect, normal thought process, cooperative, good insight, good judgment. Absent: anxious, agitated Results - Labs CBC & Chem 7: 11/25/17 14:49 11/25/17 14:49 Assessment and Plan (1) Left arm weakness Current visit: Yes Status: Acute Assessment and Plan: Assessment Left upper ext weakness - symptoms improving, suspect TIA HTN HDL NANDO addressed with CPAP OA Hypogonadism BPH Plan OBS admission to exclude CVA Tele to monitor heart rhythm. ECHO and Carotid dopplers to assess for embolic source. Continue pravastatin. Advised patient to take prior to bed for maximum effectiveness. Will check lipid profile in am. As event occur while on ASA therapy, will change to Plavix 75mg daily. PT/OT for functional assessment. MRI of brain for further structural evaluation. Continue home medications and CPAP. SCD for DVT prevention. Discussed code status with patient. Requests DNR. Order written. Care to return to Dr Lewis at time of discharge from [facility]. Case discussed with ED physician and patient's . DVT Prophylaxis: SCD's Resuscitation Status: Do Not Resuscitate - Time spent with patient Time with patient PN: 70 minutes - Physician Narrative Physician: Santino Hilliard MD Narrative: Date: 11/25/17 Time: 1712 Hospital Course Summary Disclaimer: The visit summary below is not to be considered part of the above Progress Note. Hospital Course: 11/25/17 OBS admission OBS admission to exclude CVA Tele to monitor heart rhythm. ECHO and Carotid dopplers to assess for embolic source. Continue pravastatin. Advised patient to take prior to bed for maximum effectiveness. Will check lipid profile in am. As event occur while on ASA therapy, will change to Plavix 75mg daily. PT/OT for functional assessment. MRI of brain for further structural evaluation. Continue home medications and CPAP. SCD for DVT prevention. Discussed code status with patient. Requests DNR. Order written. Care to return to Dr Lewis at time of discharge from [facility].
[2017-11-25] MEDS ORDERED: ONDANSETRON 4 MG/2 ML INJECTION IVP PRN (17:25)
[2017-11-25] MEDS ORDERED: ACETAMINOPHEN 325 MG TABLET PO PRN (17:25)
[2017-11-25 17:28] VITALS: RESP 16
[2017-11-25] MEDS: CLOPIDOGREL 75 MG TABLET PO SCH (17:42)
[2017-11-25] MEDS: 1/2 NS 1,000 ML IV SCH (18:17)
[2017-11-25] MEDS ORDERED: PRAVASTATIN 80 MG PO SCH (21:00)
[2017-11-26 07:53] VITALS: BP 139/70; TEMP 97.4; O2SAT 96
[2017-11-26] MEDS: 1/2 NS 1,000 ML IV SCH (08:14)
[2017-11-26] MEDS: POM AMLODIPINE 10 MG TABLET PO SCH ×2 (08:22→08:27)
[2017-11-26] MEDS: LACTOBACILLUS PO SCH ×2 (08:22→08:28)
[2017-11-26] MEDS: CLOPIDOGREL 75 MG TABLET PO SCH ×2 (08:22→08:30)
[2017-11-26] MEDS ORDERED: BISACODYL 5 MG PO SCH (09:00)
--- NOTE | 2017-11-26 09:08 | Ultrasound Report ---
Indication: TIA PROCEDURE: US carotid doppler BI: TECHNIQUE: Grayscale, color and duplex Doppler imaging was performed of the carotid systems bilaterally. Velocities in cm/sec - validated velocity measurements with angiographic measurements, velocity criteria are extrapolated from diameter data as defined by the Society of Radiologists in Ultrasound Consensus Conference Radiology 2003; 229;340-346. RIGHT: PSV ICA 94.9 EDV ICA 13.5 PSV CCA 71.2 EDV CCA 13.5 PSV ECA 163 ICA Diameter reduction 10%-30% (1.0-1.2 PSV<110)% LEFT: PSV ICA 102 EDV ICA 20.3 PSV CCA 111 EDV CCA 15.5 PSV ECA 163 ICA Diameter reduction 10%-30% (1.0-1.2 PSV<110)% The right vertebral artery is patent with cephalic flow. The left vertebral artery is patent with cephalic flow. Moderate atherosclerotic plaque in the carotid bulbs and proximal ICAs. No focal velocity elevations. Left common carotid intimal wall thickening. IMPRESSION: No hemodynamically significant carotid stenosis. .
--- NOTE | 2017-11-26 09:20 | Magnetic Resonance Report ---
Indication: Left upper ext weakness PROCEDURE: MR head/brain wo con: Encounter: Initial Comparisons: Head CT dated November 25, 2017 Technique: Multiplanar, multisequence, MR imaging of the head without contrast was acquired. FINDINGS: Two tiny areas of diffusion restriction are seen in the posterior right frontal lobe, one of these is along the precentral gyrus seen on axial image #20. The ventricles are of normal size, shape, and contour for the patient's age. There are small nonspecific punctate areas of T2-weighted and T2 FLAIR weighted signal abnormality in the deep frontoparietal white matter that most likely represent small vessel ischemic disease. This is of a degree that is considered to be normal for the patient's age. The brain stem, cerebellum, and cerebral hemispheres otherwise have a normal morphologic appearance as well as MR signal intensity on all pulse sequences. There is no evidence of an intracranial mass lesion, intracranial hemorrhage, or hydrocephalus. The visualized portions of the orbits, calvarium, paranasal sinuses, and skull base demonstrate no significant abnormality. 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 .
[2017-11-26 09:24] VITALS: PULSE 63
--- NOTE | 2017-11-26 11:16 | Progress Note ---
- Date 11/26/17 Subjective: F/U: Left upper ext weakness Doing well this morning. Left arm strength and coordination improved. Still noted deficits of movement to left 4th and 5th digits. Worked with therapy and did well-no other deficits noted. Given exercises to do to help improve strength and functionality of his left fingers. Ambulating well. No vision or hearing changes. No headaches. Denies SOA, cough, or congestion. No chest pressure or pain. Eating well without ab pain or nausea. No difficulty swallowing. Feels ready to go home. Objective Vital signs: Temperature 97.4 F 11/26/17 07:49 Pulse Rate 63 11/26/17 08:25 Respiratory Rate 16 11/26/17 07:49 Blood Pressure 139/70 11/26/17 07:49 Pulse Oximetry 96 11/26/17 07:49 Height/Weight/BMI: Height 1.83 m Weight 86.6 kg Body Mass Index 26.2 - Constitutional Present: no acute distress, well nourished, well developed, average body habitus , cooperative - Routine HEENT Exam Head: Present: normocephalic, atraumatic Eye: Present: EOMI, PERRL ENT: Present: mucous membranes moist - Routine Respiratory Exam Present: decreased breath sounds. Absent: respiratory distress, rhonchi, stridor, wheezes, crackles - Routine Cardiovascular Exam Present: RRR, no murmur - Routine Abdominal Exam Present: soft, normoactive bowel sounds, non distended, non tender. Absent: guarding - Routine Extremities Exam Present: edema (+2 LLE ), pulses intact. Absent: cyanosis, clubbing - Routine Musculoskeletal Exam Musculoskeletal: Present: no clubbing or cyanosis - Routine Skin Exam Present: dry, warm - Routine Neurological Exam Present: alert, oriented X3, CN II-XII intact, motor deficit (Decrease strength to 4th and 5th digit of left hand.), moving all extremities, vision grossly intact, hearing grossly intact, normal speech. Absent: altered mental status, hemineglect, facial asymmetry - Routine Psychiatric Exam Present: normal affect, normal thought process, cooperative, good insight, good judgment Results - Labs CBC & Chem 7: 11/26/17 04:31 11/26/17 04:31 Assessment and Plan (1) Left arm weakness Current visit: Yes Status: Acute Assessment and Plan: Assessment Left upper ext weakness - symptoms improving Persistent weakness to 4th and 5th digits of left hand Acute ischemic stroke: two tiny areas of acute right MCA territory infarct in the posterior right frontal lobe HTN HDL NANDO addressed with CPAP OA Hypogonadism BPH Plan Clinically improving. Minimal residual deficit to left hand, not limiting his overall functional status. Lipid profile reviewed: Chol 144 LDL 75 HDL 44 Trig 123 -- recommend continuing pravastatin, but taking at night for maximum effect. Blood pressure controlled. Continue Plavix in place of ASA - discussed risk of bleeding with patient. Carotid Doppler showing non rate limiting stenosis. ECHO results pending. With improvement of symptom can discharge to home. F/U with Dr Lewis in 1 week for medical reevaluation. See orders for details. Case discussed with patient's . Time spent with care and discharge greater than 30 minutes. DVT Prophylaxis: SCD's Resuscitation Status: Do Not Resuscitate - Physician Narrative Physician: Santino Hilliard MD Narrative: Date: 11/26/17 Time: 1112 Hospital Course Summary Disclaimer: The visit summary below is not to be considered part of the above Progress Note. Hospital Course: 11/25/17 OBS admission OBS admission to exclude CVA Tele to monitor heart rhythm. ECHO and Carotid dopplers to assess for embolic source. Continue pravastatin. Advised patient to take prior to bed for maximum effectiveness. Will check lipid profile in am. As event occur while on ASA therapy, will change to Plavix 75mg daily. PT/OT for functional assessment. MRI of brain for further structural evaluation. Continue home medications and CPAP. SCD for DVT prevention. Discussed code status with patient. Requests DNR. Order written. Care to return to Dr Lewis at time of [place] [facility] 11/26/17 Clinically improving. Minimal residual deficit to left hand, not limiting his overall functional status. MRI did show two tiny areas of acute right MCA territory infarct in the posterior right frontal lobe. Lipid profile reviewed: Chol 144 LDL 75 HDL 44 Trig 123 -- recommend continuing pravastatin, but taking at night for maximum effect. Blood pressure controlled. Continue Plavix in place of ASA - discussed risk of bleeding with patient. Carotid Doppler showing non rate limiting stenosis. ECHO results pending. With improvement of symptom can discharge to home. F/U with Dr Lewis in 1 week for medical reevaluation. See orders for details.
--- NOTE | 2017-11-26 14:12 | Discharge Summary ---
Discharge Information Date of admission: 11/25/17 16:57 Anticipated date of discharge: 11/26/17 Attending Physician: Santino Hilliard MD Primary care physician: Guido Lewis DO Consults: PT/OT - Discharge Diagnosis (1) Left arm weakness Status: Acute Discharge diagnosis Left upper ext weakness - symptoms improving Persistent weakness to 4th and 5th digits of left hand Acute ischemic stroke: two tiny areas of acute right MCA territory infarct in the posterior right frontal lobe Associated conditions and complications HTN HDL NANDO addressed with CPAP OA Hypogonadism BPH - Procedures Procedures: ECHO obtained during hospitalization. Results pending at time of discharge. - Laboratory Labs: Admit Lab 11/25/17 14:49 WBC 7.5 Hgb 14.6 Hct 45.9 MCV 91.1 Plt Count 118 L Neut % (Auto) 67.0 H Lymph % (Auto) 20.3 L Eos % (Auto) 4.0 Baso % (Auto) 1.1 Admit Lab 11/25/17 14:49 Sodium 141 Potassium 4.8 Chloride 104 Carbon Dioxide 24 Anion Gap 13 BUN 24.0 H Creatinine 0.9 GFR Calculation 81 BUN/Creatinine Ratio 27 H Glucose 116 H Calculated Osmolality 276 Calcium 10.4 H Total Bilirubin 1.10 AST 47 ALT 14 L Alkaline Phosphatase 74 Troponin I < 0.012 Total Protein 8.0 Albumin 4.8 Globulin 3.2 Albumin/Globulin Ratio 1.5 Lipid Panel 11/26/17 04:31 Triglycerides 123 Cholesterol 144 LDL Cholesterol, Calc 75.4 VLDL Cholesterol 24.6 HDL Cholesterol 44 Cholesterol/HDL Ratio 3.3 11/26/17 04:31 11/26/17 04:31 - Radiology Radiology: Date of Exam: 11/25/17 PROCEDURE: CT head/brain wo con FINDINGS: The ventricles are of normal size, shape, and contour for the patient' s age. Focal low-attenuation is noted in the right temporal lobe best seen on axial image #17 measuring 1.3 cm in diameter. This is of indeterminate age without available comparison. The brainstem, cerebellum, and cerebral hemispheres otherwise have a normal morphology and CT attenuation. There is no evidence of midline displacement. No hemorrhage, signs of acute territorial stroke, mass effect, mass lesions, or edema is evident. The visualized portions of the skull base, midface, and calvarium demonstrate no abnormality. The paranasal sinuses are well aerated and free of significant disease. The tympanic and mastoid cavities appear normal. IMPRESSION: No acute intracranial hemorrhage. Age-indeterminate ischemic change in the right temporal lobe. Further evaluation with MRI may be helpful given the patient's symptoms. -- Date of Exam: 11/25/17 PROCEDURE: XR chest 1V Findings: The lungs are stable in appearance without new focal airspace consolidation. There is no pleural effusion or pneumothorax. The heart size, pulmonary vascularity and mediastinal contours are unchanged. IMPRESSION: Stable appearance of the chest without acute cardiopulmonary disease. --- Date of Exam: 11/26/17 PROCEDURE: MR head/brain wo con FINDINGS: Two tiny areas of diffusion restriction are seen in the posterior right frontal lobe, one of these is along the precentral gyrus seen on axial image #20. The ventricles are of normal size, shape, and contour for the patient 's age. There are small nonspecific punctate areas of T2-weighted and T2 FLAIR weighted signal abnormality in the deep frontoparietal white matter that most likely represent small vessel ischemic disease. This is of a degree that is considered to be normal for the patient's age. The brain stem, cerebellum, and cerebral hemispheres otherwise have a normal morphologic appearance as well as MR signal intensity on all pulse sequences. There is no evidence of an intracranial mass lesion, intracranial hemorrhage, or hydrocephalus. The visualized portions of the orbits, calvarium, paranasal sinuses, and skull base demonstrate no significant abnormality. 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 ---- Date of Exam: 11/25/17 PROCEDURE: US carotid Doppler BI The right vertebral artery is patent with cephalic flow. The left vertebral artery is patent with cephalic flow. Moderate atherosclerotic plaque in the carotid bulbs and proximal ICAs. No focal velocity elevations. Left common carotid intimal wall thickening. IMPRESSION: No hemodynamically significant carotid stenosis. History of Present Illness HPI: 82 y/o male with HTN and HDL [place] [facility] [place] secondary to acute onset of left hand and upper ext weakness. Symptoms onset suddenly while he was driving from home to [place]. Noticed his left arm very weak and rubbery, not able to control left hand or arm. No numbness. Enroute from [place] to [place], majority of weakness resolved. Currently only had weakness to 4th and 5th fingers. Does note incoordination to left hand-not as weak as was initially, but not moving completely normally. No similar symptoms in his left leg or right side. Denies [place], visual or hearing changes. No chest pressure, pain or palpitations. Denies recent illness. No f/c. Not feeling SOA or congested. No ab pain, nausea or vomiting. Stools stable. Denies urinary pain or burning. Does take ASA 81mg daily. Adherent with medications, but reports using pravastatin in the morning. Evaluated in ED. CT without acute bleed. Lab unremarkable. With improving symptoms, Teleneurology recommended against TPA. Place in OBS status for further evaluation and treatment. For complete details of the H&P refer to that document. Objective Vital signs: Temperature 97.4 F 11/26/17 07:49 Pulse Rate 63 11/26/17 08:25 Respiratory Rate 16 11/26/17 07:49 Blood Pressure 139/70 11/26/17 07:49 Pulse Oximetry 96 11/26/17 07:49 Height/Weight/BMI: Height 1.83 m Weight 86.6 kg Body Mass Index 26.2 Hospital Course This is a general summary of the patient's hospital course. For more details refer to the complete medical record. Hospital course: 11/25/17 OBS Admission OBS admission to exclude CVA Tele to monitor heart rhythm. ECHO and Carotid dopplers to assess for embolic source. Continue pravastatin. Advised patient to take prior to bed for maximum effectiveness. Will check lipid profile in am. As event occur while on ASA therapy, will change to Plavix 75mg daily. PT/OT for functional assessment. MRI of brain for further structural evaluation. Continue home medications and CPAP. SCD for DVT prevention. Discussed code status with patient. Requests DNR. Order written. Care to return to Dr Lewis at time of [place] [facility] 11/26/17 Discharge Clinically improving. Minimal residual deficit to left hand, not limiting his overall functional status. MRI did show two tiny areas of acute right MCA territory infarct in the posterior right frontal lobe. Lipid profile reviewed: Chol 144 LDL 75 HDL 44 Trig 123 -- recommend continuing pravastatin, but taking at night for maximum effect. Blood pressure controlled. Continue Plavix in place of ASA - discussed risk of bleeding with patient. Carotid Doppler showing non rate limiting stenosis. ECHO results pending. With improvement of symptom can discharge to home. F/U with Dr Lewis in 1 week for medical reevaluation. Recommend rechecking CMP in about 1 month. See orders for details. Time spent with patient: discharge greater than 30 minutes Resuscitation Status: Do Not Resuscitate Discharge Plan - Discharge Disposition Discharge Date: 11/26/17 Disposition: 01 Discharged Home, Self-Care *Condition: Improved Reason For Visit (Visit label in EMR): TIA - Discharge Medications *Discharge Medications: New Clopidogrel [Plavix] 75 mg PO DAILY #30 tab Continue Cholecalciferol [Vit. D-3] 1,000 unit PO DAILY #0 Zinc 50 mg PO DAILY Amlodipine [Norvasc] 10 mg PO DAILY Bisacodyl EC TAB [Dulcolax] 10 mg PO DAILY Vitamin E Mixed [Vitamin E] 400 unit PO DAILY #0 Wheat Dextrin [Benefiber] 2 tsp PO DAILY #0 Lactobacillus Acidophilus [Probiotic] 1 each PO DAILY Depo-Testosterone (testosterone cypionate) 100 mg/mL intramuscular oil See Label Instructions IM .COMPLEX ml Changed Pravastatin Sodium 80 mg PO HS #0 Discontinued Aspirin *EC* [Ecotrin] 81 mg PO BID #84 tab - Discharge Packet/Instructions *Diet: Low sodium *Activity: As tolerated. Continue exercises as instructed by therapy. *Pain Management/Treatment: Continue prior home pain medications. *Wound Care: N/A Additional Instructions: Stop Aspirin. Use Plavix 75mg once a day in it's place for stroke prevention. Take Pravachol (pravastatin) at before bed for best effect. *Expected Signs/Symptoms: Improvement of functionality of left hand. *Notify Physician if: New neurological changes: weakness, numbness, difficulty with coordination, difficulty speaking, intractable nausea/vomiting, severe headache, visual change. *During Business Hours Contact: Dr Lewis *After Business Hours Contact: Call [facility] [place] Dr Lewis or his covering provided contacted. *Pending Lab/Results: Follow up w/Provider (ECHO pending at discharge) - Referrals/Follow Up *Referrals/Follow Up: Guido Lewis DO [Family Provider] - 12/03/17 10:00 am (Hospital follow up for left sided weakness secondary to acute stroke. Consider rechecking lipid profile in about [address] LEWIS IN [place]) - Patient Handouts - Dismissal Complete Discharge Instructions are:: Complete Physician Narrative - Narrative Attestation Narrative: Date: 11/26/17 Time: [id number] I have independently interviewed and examined patient prior to discharge. See my progress note from today for details. Medically stable for discharge to home.
--- NOTE | 2017-11-26 14:54 | Echocardiogram ---
DATE OF STUDY 11/25/2017 INDICATIONS TIA. TECHNICAL QUALITY Technically good 2D, M-mode, Doppler echocardiographic images were submitted for interpretation. FINDINGS 1. CARDIAC CHAMBERS: Left atrium is mildly enlarged, measuring 4.9 cm. All other cardiac chamber measurements are normal in size. RV size is borderline increased with good RV systolic function. Aortic root diameter is normal. 2. LEFT VENTRICLE: Borderline concentric LVH is present. Wall motion analysis is normal. Systolic function is normal. EF is estimated about 55%. Diastolic dysfunction grade 1/4 is present. 3. VALVES: Aortic and mitral valve exhibit mild sclerotic changes. Valve excursion is normal. Tricuspid valve structure and motion appear normal. Normal valve excursion. 4. DOPPLER: Trace aortic regurgitation, normal flow velocities. No aortic stenosis. Trace tricuspid regurgitation. Mild mitral regurgitation. 5. No evidence of pericardial effusion, intracardiac masses, thrombi, vegetations or shunts. 6. Normal central venous pressure. 7. Normal systolic PA pressure at 25 mmHg. 8. Bubble study was not performed. IMPRESSION 1. Mild left atrial enlargement. 2. Normal LV size and systolic function. 3. Mild diastolic dysfunction. 4. No evidence of intracardiac masses, thrombi, vegetations or shunts. 5. The patient was in sinus rhythm during the study. 6. Mild valvular insufficiency involving aortic, mitral and tricuspid valves. MTDD
== END 2017-11-26 13:10 | disposition home or self-care (01) ==
LOC: MED 14:10 → ED 14:10 → MED 17:15
PROVIDERS: ADMIT Hospitalist; ATTEND Hospitalist